=== PATIENT | male | born 1985 | race Caucasian/White ===

== ENCOUNTER 2025-01-28 21:05 | Emergency (ER) | payer SELFPAY ==
[2025-01-28 21:17] VITALS: BP 126/80
[2025-01-28 21:27] VITALS: BP 131/78
[2025-01-28 21:31] VITALS: BMI 35.5
--- NOTE | 2025-01-28 21:35 | ED.GENMED ---
History of Present Illness
<Duke Armenta MD, Resident - Last Filed: 01/28/25 22:43>
General
Chief Complaint: Musculo-Skeletal Complaint
Source: patient
Exam Limitations: none
Time Seen by Provider: 01/28/25 21:23
Nursing documentation reviewed up to this point in time: agreed with
History of Present Illness
History of Present Illness:
This is a 39-year-old male with history of GERD, bipolar on Abilify, Prozac recently was put on metformin for elevated blood sugars presenting in the emergency department with complaints of left shoulder pain for 2 weeks and occasional
lightheadedness for few weeks. Given his strong family history of CAD he was concerned and wanted to get evaluation to make sure that this is not related to his heart. Reports that he had a recent blood work with his family doctor which showed
elevated cholesterol and they recommended statin however he did not start that yet. Denies any fevers or chills, denies any trouble breathing, denies any urinary or GI symptoms.
Past History
<Duke Armenta MD, Resident - Last Filed: 01/28/25 22:43>
Past History
ED Past Medical History: GERD, NIDDM and Psychiatric (Bipolar)
ED Past Surgical History: Orthopedic
Patient has exhibited threatening behavior?: No
Social History
Tobacco: Smoker (1 pack/day)
Alcohol: Occasional
Drug: None
Personal: Single
Living: with family
Family History
Family History: Diabetes and CAD
Review of Systems
<Duke Armenta MD, Resident - Last Filed: 01/28/25 22:43>
Review of Systems
Allergies reviewed?: Yes
Constitutional: Denies fever or chills
EENT: Denies sore throat
Respiratory: Denies cough
Cardiac: Denies chest pain
ABD/GI: Denies abdominal pain
: Denies dysuria
Musculoskeletal: Reports joint pain (Left shoulder)
Skin: Denies itching
Neurological: Denies dizzy or weakness
Hematologic/Lymphatic: Denies bleeding
Phy Exam
<Duke Armenta MD, Resident - Last Filed: 01/28/25 22:43>
General Physical Exam
General Presentation: well appearing and no apparent distress
General age: appears stated age
General Skin: warm
General Habitus: obese
General Mental: alert
General Hydration: appears well hydrated
Cardiovascular Exam
Cardiovascular Exam: regular rate/rhythm and no murmur
Pulmonary Exam
Pulmonary Exam: lungs clear, no respiratory distress and no cough
Gastrointestinal Exam
Gastrointestinal Exam: non tender, soft and non distended
Neurological Exam
Neurological Exam: alert and oriented x3
Musculoskeletal Exam
Musculoskeletal Exam: neuro vasc intact and other (Pain withLeft shoulder range of motion; especially with abduction against resistance)
Course
<Duke Armenta MD, Resident - Last Filed: 01/28/25 22:43>
Orders/Labs/Results
Orders:
Orders
01/28/25 21:21
Electrocardiogram (*1) Urgent
Reason for Study: Chest Pain
EKG- Treatment ONCE
01/28/25 21:41
Basic Metabolic Panel Urgent
Complete Blood Count/No Diff Urgent
Troponin I Urgent
01/28/25 21:44
CR Shoulder - Left Min 2 View* Urgent
Comment:
Reason For Exam: Shoulder pain
01/28/25 22:01
Sling Left-Treatment ONCE
Comment: Left arm/Shoulder
Abnormal Lab Results
01/28/25
21:41
RBC 4.68 L 10^6/uL
(4.70-6.10)
01/28/25 21:41
01/28/25 21:41
Vital Signs
Initial and Last Documented VS:
Initial Vital Signs
Temp Pulse Resp BP Pulse Ox
98.1 F 66 16 126/80 98
01/28/25 21:17 01/28/25 21:17 01/28/25 21:17 01/28/25 21:17 01/28/25 21:17
Last Documented Vital Signs
Temp Pulse Resp BP Pulse Ox
98.1 F 76 21 131/78 96
01/28/25 21:17 01/28/25 21:30 01/28/25 21:30 01/28/25 21:27 01/28/25 21:36
<Richar De Souza, DO - Last Filed: 01/28/25 21:38>
Orders/Labs/Results
Orders:
Orders
01/28/25 21:21
Electrocardiogram (*1) Urgent
Reason for Study: Chest Pain
EKG- Treatment ONCE
01/28/25 21:41
Basic Metabolic Panel Urgent
Complete Blood Count/No Diff Urgent
Troponin I Urgent
01/28/25 21:44
CR Shoulder - Left Min 2 View* Urgent
Comment:
Reason For Exam: Shoulder pain
01/28/25 22:01
Sling Left-Treatment ONCE
Comment: Left arm/Shoulder
Abnormal Lab Results
01/28/25
21:41
RBC 4.68 L 10^6/uL
(4.70-6.10)
01/28/25 21:41
01/28/25 21:41
Vital Signs
Initial and Last Documented VS:
Initial Vital Signs
Temp Pulse Resp BP Pulse Ox
98.1 F 66 16 126/80 98
01/28/25 21:17 01/28/25 21:17 01/28/25 21:17 01/28/25 21:17 01/28/25 21:17
Last Documented Vital Signs
Temp Pulse Resp BP Pulse Ox
98.1 F 76 21 131/78 96
01/28/25 21:17 01/28/25 21:30 01/28/25 21:30 01/28/25 21:27 01/28/25 21:36
<Duke Armenta MD, Resident - Last Filed: 01/28/25 22:43>
MDM/Problems Addressed
Differential Diagnosis Includes:
Muscular pain vs Rotator cuff tearvs less likely Shoulder joint fx vs unlikely cardiac
MDM/Problems Addressed:
EKG with normal sinus. no St and t wave changes.
will do CBC, bmp, trop.
Check Shoulder Xray
update:
Shoulder X-ray with questionable calcification; Suspicion of tendonitis; will give him a sling for prn use for potentially speed up the recovery process. will also provide the ortho referral for outpatien fu.
CBC, CMP unremarkable
Troponin undetectable
Very likely that his shoulder pain is not cardiac disease related.
Shared decision was made with patient for discharge home and follow-up with orthopedic. Patient verified understanding agree with the plan
Per patient request provided pulmonology referral to discuss rx options for BIJAL
<Duke Armenta MD, Resident - Last Filed: 01/28/25 22:43>
*Pulse Oximetry
SaO2: 96
Oxygen Mode of Delivery: Room air
Patient hypoxic: no
*Critical Care Note
Total Time (30-74mins, 75-104mins- exclusive of procedures): Not Applicable
ED Attending Note
<Duke Armenta MD, Resident - Last Filed: 01/28/25 22:43>
-
Portions of this chart may have been created with voice recognition software.� Occasional wrong word or��sound alike� substitutions may have occurred due to the inherent limitations of voice recognition software.
<Richar De Souza, DO - Last Filed: 01/28/25 21:38>
ED Attending Note
Patient seen and examined by attending physician: Yes
I performed the substantive portion of visit, reviewed & personally made and approve the management plan that is documented in note by myself or SHANTELLE.: Yes
ED Attending Note:
I evaluated the patient at bedside. The patient had rather significant pain with abduction against resistance at the left shoulder. His reason for visit primarily was related to concerns about the possibility of a cardiac etiology as he does have
several cardiac risk factors including a family history.
EKG: Sinus 63, normal axis, no acute ST abnormality with no old to compare
Discharge Plan
Departure
Patient Disposition: Home (Routine Discharge)
Date of Disposition: 01/28/25
Time of Disposition: 22:40
Patient with high blood pressure during this ER visit?: Yes
Condition: Good
Discharge Problem:
Left shoulder pain
Instructions: How to Use a Shoulder Sling, Shoulder pain - ED discharge instructions
Prescriptions:
No Action
pantoprazole 40 MG tablet,delayed release (DR/EC)
40 mg PO DAILY
doxycycline hyclate 100 MG capsule
100 mg PO Q12
rabies vacc,human diploid (PF) [Imovax Rabies Vaccine (PF)] 1 ML recon soln
1 ml IM PER PROTOCOL Qty: 1 0RF
Referrals:
Dino Camacho MD [Active, Orthopedics] - Call in 1-3 days for appt
Edgar Rangel MD [Active, Pulmonary Medicine]
Referral Note: B[facility]
Activity Restrictions/Additional Instructions:
You were seen in the [facility] emergency department with concerns of left shoulder pain. While you were in the hospital we performed complete blood count which was unremarkable basic metabolic panel was unremarkable. Troponin was
undetectable. EKG with normal sinus rhythm. Left shoulder x-ray with concerns of possible tendinitis, no obvious fracture. You were given shoulder sling. Please follow-up with outpatient orthopedic. Information attached. Information for
outpatient crusher tender is also attached with this paperwork to discuss treatment options for obstructive sleep apnea. If you develop any chest pain, trouble breathing, new or worrisome concerns please return to the emergency department
Interventions
Interventions:
*Risk Screen - Suicide Last Done: 01/28/25 21:28
*General Assessment Last Done: 01/28/25 21:28
*Neglect/Abuse Screening Last Done: 01/28/25 21:28
*ED- Fall Risk Assessment Last Done: 01/28/25 21:28
*ED COVID-19 Vaccine History Last Done: 01/28/25 21:28
ED-Musculoskeletal Assessment Last Done: 01/28/25 21:28
Discharge Date and Time
Print Language: MOLDOVAN
[2025-01-28 21:47] LABS: Hematocrit 39.1 % (39.0-52.0); Hemoglobin 13.2 g/dL (13.0-18.0); Mean Corp Hgb Conc. 33.8 g/dL (33.0-37.0); Mean Corpuscular Volume 83.5 fL (80.0-94.0); Platelet Count 219 10^3/uL (130-400); Red Cell Dist. Width 12.3 % (11.5-14.5)
[2025-01-28 22:18] LABS: Blood Urea Nitrogen 16 mg/dl (9-20); Calcium 9.4 mg/dl (8.4-10.2); Carbon Dioxide 29 mmol/L (22-30); Chloride 105 mmol/L (98-107); Estimated Creatinine Clearance 111 ml/min; Glucose 88 mg/dl (70-99); Potassium 4.1 mmol/L (3.5-5.1); Sodium 139 mmol/L (135-145); eGFR > 60.00
[2025-01-28 22:28] LABS: Troponin I < 0.012 ng/ml
[2025-01-28 22:55] VITALS: BP 142/88
== END 2025-01-28 22:57 | disposition home or self-care (01) ==
LOC: EMR 21:05
PROVIDERS: EMERGENCY PHYSICIAN Emergency Medicine
DX: M25.512 Pain in left shoulder (principal); E11.9 Type 2 diabetes mellitus without complications; E78.00 Pure hypercholesterolemia, unspecified; F17.210 Nicotine dependence, cigarettes, uncomplicated
CPT/HCPCS: 99284; 73030; 80048; 84484; 85027; 93005